=== PATIENT | male | born 1975 | race Caucasian/White ===

== ENCOUNTER → 2017-01-04 | Outpatient (CLI) | payer MEDICARE | LOC: RAD 16:50 | DX: M54.5 Low back pain (principal); M62.838 Other muscle spasm; M54.6 Pain in thoracic spine; S22.089D Unspecified fracture of T11-T12 vertebra, subsequent encounter for fracture with routine healing | CPT/HCPCS: 72040; 72072; 72100 ==

== ENCOUNTER → 2020-10-06 | Outpatient (CLI) | payer OTHER ==
[~2020-10-06] MED LIST: CALCIUM + VITA1 EACH PO; IBUPROFEN800 MG PO; KEFLEX500 MG PO; NORCO 7.5-3251 EACH PO; OMEPRAZOLE20 MG PO; VITAMIN C500 M4 PO; VITAMIN D31250 MCG PO; ZESTRIL10 MG PO
== END ==
LOC: KOH-I 08:55
DX: S92.352D Displaced fracture of fifth metatarsal bone, left foot, subsequent encounter for fracture with routine healing (principal); X58.XXXD Exposure to other specified factors, subsequent encounter
CPT/HCPCS: 73630

== ENCOUNTER → 2020-11-18 | Outpatient (CLI) | payer OTHER | LOC: KOH-I 08:42 | DX: S92.352D Displaced fracture of fifth metatarsal bone, left foot, subsequent encounter for fracture with routine healing (principal); X58.XXXD Exposure to other specified factors, subsequent encounter | CPT/HCPCS: 73630 ==